=== PATIENT | female | born 1965 | race Caucasian/White ===

== ENCOUNTER → 2016-09-14 | Outpatient (CLI) | payer BC ==
[~2016-09-14] MED LIST: ESTRACE2 MG PO; FERROUS SULFATE27 MG PO; FLUOXETINE PO; HORIZANT600 MG; LANTUS100 U/ML; LEXAPRO 10MG10 MG PO; LOSARTAN POTASS1 TA2 PO; LYRICA PO; METFORMIN1000 MG PO; PEPCID 20MG TAB20 MG PO; VICTOZA6 MG/ML; VICTOZA6 MG/ML SC; VITAMIN C500 MG PO; ZOCOR PO
== END ==
LOC: MC.RAD 08:54
DX: Z12.31 Encounter for screening mammogram for malignant neoplasm of breast (principal)

== ENCOUNTER → 2018-01-15 | Outpatient (CLI) | payer BC | LOC: MC.RAD 09:58 | DX: Z12.31 Encounter for screening mammogram for malignant neoplasm of breast (principal) ==

== ENCOUNTER → 2020-06-24 | Outpatient (CLI) | payer BC | LOC: MC.RAD 11:37 | DX: Z12.31 Encounter for screening mammogram for malignant neoplasm of breast (principal) ==

== ENCOUNTER → 2023-07-13 | Outpatient (CLI) | payer BC | LOC: MC.RAD 14:25 | DX: Z12.31 Encounter for screening mammogram for malignant neoplasm of breast (principal) ==

== ENCOUNTER → 2023-09-12 | Outpatient (CLI) | payer BC | LOC: DIA.ED 10:06 | DX: E11.40 Type 2 diabetes mellitus with diabetic neuropathy, unspecified (principal); Z79.4 Long term (current) use of insulin; I10 Essential (primary) hypertension; E78.5 Hyperlipidemia, unspecified | CPT/HCPCS: G0108 ==

== ENCOUNTER → 2023-10-10 | Outpatient (CLI) | payer BC | LOC: DIA.ED 10:56 | DX: E11.40 Type 2 diabetes mellitus with diabetic neuropathy, unspecified (principal); Z79.4 Long term (current) use of insulin; I10 Essential (primary) hypertension; E78.5 Hyperlipidemia, unspecified ==

== ENCOUNTER → 2023-12-12 | Outpatient (CLI) | payer BC | LOC: DIA.ED 11:27 | DX: E11.40 Type 2 diabetes mellitus with diabetic neuropathy, unspecified (principal); I10 Essential (primary) hypertension; E78.5 Hyperlipidemia, unspecified; Z79.4 Long term (current) use of insulin | CPT/HCPCS: G0108 ==